=== PATIENT | female | born 1970 | race Caucasian/White ===

== ENCOUNTER 2016-07-04 20:01 | Emergency (ER) | payer MEDICAID ==
[2016-07-04] MEDS ORDERED: Albuterol-Ipratrop 3 mg / 0.5 (3 ml) UD INH STA ×2 (20:24→21:02)
[2016-07-04] MEDS ORDERED: Albuterol-Ipratrop 3 mg / 0.5 (3 ml) UD ONE ×2 (20:34→21:10)
--- NOTE | 2016-07-04 21:40 | C.PDOC ---
History Of Present Illness Patient is a 46 year old female who presents to the ER with a complaint of coughing, congestion, sore throat, ear aches and wheezing. Patient admits she is a smoker, denies chest pain, fever and chills. Time Seen by Provider: 07/04/16 20:18 Chief Complaint (Nursing): Cough, Cold, Congestion History Per: Patient History/Exam Limitations: no limitations Onset/Duration Of Symptoms: Hrs Current Symptoms Are (Timing): Still Present Location Of Pain: Ear(s), Throat Associated Symptoms: Sore Throat, Cough, Nasal Congestion. denies: Fever, Chills, Other (Chest pain.) Ear Symptoms: Bilateral: Ear Pain Recent travel outside of the [place]: No Past Medical History Reviewed: Historical Data, Nursing Documentation, Vital Signs Vital Signs: Last Vital Signs Temp 98.8 F 07/04/16 22:05 Pulse 90 07/04/16 22:05 Resp 18 07/04/16 22:05 BP 105/65 07/04/16 22:05 Pulse Ox 99 07/04/16 22:05 - Medical History PMH: No Chronic Diseases Surgical History: No Surg Hx Family History: States: Unknown Family Hx - Social History Hx Tobacco Use: Yes Hx Alcohol Use: Yes Hx Substance Use: No - Immunization History Hx Tetanus Toxoid Vaccination: No Hx Influenza Vaccination: No Hx Pneumococcal Vaccination: No Review Of Systems Constitutional: Negative for: Fever, Chills ENT: Positive for: Ear Pain, Nose Congestion, Throat Pain Cardiovascular: Negative for: Chest Pain Respiratory: Positive for: Cough, Wheezing Physical Exam - Physical Exam Appears: Non-toxic Skin: Normal Color, Warm, Dry Head: Atraumatic, Normacephalic Eye(s): bilateral: Normal Inspection, EOMI Ear(s): Bilateral: Normal Nose: Normal Oral Mucosa: Moist Throat: Normal, No Erythema, No Exudate Neck: Normal ROM, Supple Lymphatic: Normal Exam Chest: Symmetrical, No Tenderness Cardiovascular: Rhythm Regular Respiratory: No Accessory Muscle Use, Wheezing Neurological/Psych: Oriented x3, Normal Speech, Other (No focal deficits) ED Course And Treatment O2 Sat by Pulse Oximetry: 98 (Room air) Pulse Ox Interpretation: Normal - Radiology CXR: Interpreted by Me, Viewed By Me CXR Interpretation: Yes: No Acute Disease Progress Note: Nebulizer treatment administered. CXR ordered, no acute abnormalities found in results. On reassessment, scattered wheezing persists, will treat patient with another nebulizer treatment. On reassessment, patient is resting comfortably with no wheezing, chest pain, or retractions. No leg swelling pr pain. NO SOB. NO tachycardic. Not hypoxic. Oxygen saturation and breath sounds have improved. Patient is alert and oriented x 3. Patient was advised to follow up with PMD in 1-2 days and return to ED if symptoms worsen or persist. Disposition - Disposition Disposition: HOME/ ROUTINE Disposition Time: 21:38 Condition: STABLE Additional Instructions: Stop smoking. Follow up with primary medical doctor in 1-3 days without fail for further evaluation. Take medications as prescribed. Return to the emergency department at any time if symptoms persist or worsen. Prescriptions: Albuterol HFA [Ventolin HFA 90 mcg/actuation (8 g)] 2 puff IH [id number] #1 puff Albuterol 0.083% [Albuterol 0.083% Inhal Christiana (2.5 mg/3 ml) UD] 2.5 mg IH Q6 PRN #20 neb PRN Reason: Shortness Of Breath Azithromycin [Zithromax] 250 mg PO DAILY #6 tab predniSONE [Prednisone] 40 mg PO DAILY #8 tab Instructions: Acute Bronchitis (ED) - Clinical Impression Clinical Impression: Bronchitis - Scribe Statement The provider has reviewed the documentation as recorded by the Scribwilfrido Nj All medical record entries made by the Scribwilfrido were at my direction and personally dictated by me. I have reviewed the chart and agree that the record accurately reflects my personal performance of the history, physical exam, medical decision making, and the department course for this patient. I have also personally directed, reviewed, and agree with the discharge instructions and disposition.
[2016-07-04 22:06] VITALS: BP 105/65; PULSE 90; RESP 18; TEMP 98.8
[2016-07-04 22:09] VITALS: O2SAT 98
--- NOTE | 2016-07-05 09:09 | RAD ---
HISTORY: SOB COMPARISON: No prior. TECHNIQUE: Chest PA and lateral FINDINGS: LUNGS: No active pulmonary disease. PLEURA: No significant pleural effusion identified. No pneumothorax apparent. CARDIOVASCULAR: Normal. OSSEOUS STRUCTURES: No significant abnormalities. VISUALIZED UPPER ABDOMEN: Normal. OTHER FINDINGS: None. IMPRESSION: No active disease.
== END 2016-07-04 22:06 | disposition home or self-care (01) ==
LOC: C.ER 20:01
DX: J40 Bronchitis, not specified as acute or chronic (principal); Z72.0 Tobacco use